=== PATIENT | female | born 1935 | race Caucasian/White ===

== ENCOUNTER → 2017-12-12 | Outpatient (CLI) | payer OTHER ==
[~2017-12-12] MED LIST: DOXAZOSIN MESYLA8 MG; TIMOLOL MALEATE5 M1
== END | disposition home or self-care (01) ==
LOC: CDC 10:50
DX: Z01.810 Encounter for preprocedural cardiovascular examination (principal); I70.25 Atherosclerosis of native arteries of other extremities with ulceration; R94.31 Abnormal electrocardiogram [ECG] [EKG]
CPT/HCPCS: 93000